=== PATIENT | male | born 1960 | race Caucasian/White ===

== ENCOUNTER → 2017-02-15 | Outpatient (CLI) | payer OTHER ==
--- NOTE | ~2017-02-15 | PUL ---
PATIENT'S NAME: WIL WAGONER [facility] AGE: 56 Y [address] ROOM: [place], [place] [address] LOCATION: [facility] ADMIT DATE: 02/15/2017 Pulmonary DISCHARGE DATE: FAMILY PHYSICIAN: gNuyễn Santiago MD ATTENDING PHYSICIAN: Nguyễn Santiago NAME OF PROCEDURE: Sleep Study PROCEDURE DATE: 02/15/2017 TECH: MARV Ortiz TEST #: [facility] [place]# [id number] TECHNICAL PARAMETERS: The patient was studied using [employer] 10/20 measuring system. While the patient was studied, there was continuous monitoring of EEG (8 leads), EOG (2 leads), EKG (3 leads), submental EMG (3 leads), tibial (4 leads), respiratory inductive plethysmography (RIP) for thoracic and abdominal effort, oral and nasal airflow with a thermocouple and pressure transducer, and oximetry. The power technician also performed visual and auditory observations noting things like body position, patient's status, breath sounds, artifact, snoring level and patient comments. Continuous sound was monitored using a 2-way speaker system and video monitoring was performed using an infrared camera. Review of the entire study was performed epoch by epoch utilizing a single epoch and multiple epoch capability sleep system. MEDICAL HISTORY: Patient is a 56-year-old overweight man with daytime sleepiness and snoring. SLEEP STAGE SUMMARY: The patient was studied for 459 minutes of which he slept 228 minutes. He fell asleep in 11 minutes and slept for 50% of the night. Sleep architecture revealed a decline in slow wave and REM sleep. RESPIRATORY SUMMARY: Oxygen saturations ranged from 88-94%. Prior to initiating CPAP there were 25 apneas and 19 hypopneas for an apnea/hypopnea index moderately elevated at 20 events per hour. CPAP was initiated and titrated to 14 cm. Patient had some difficulty sleeping with CPAP on and CPAP titration was incomplete. EKG SUMMARY: Average heart rate during sleep 60 beats per minute. No dysrhythmias were noted. LIMB MOVEMENT SUMMARY: No clinically relevant periodic limb movements were noted. PATIENT'S NAME: WIL WAGONER [facility] AGE: 56 Y [address] ROOM: [place], [place] [address] LOCATION: [facility] ADMIT DATE: 02/15/2017 Pulmonary DISCHARGE DATE: FAMILY PHYSICIAN: Nguyễn Santiago MD ATTENDING PHYSICIAN: Nguyễn Santiago SUMMARY: Moderate obstructive sleep apnea. PLAN: Would consider auto titrating CPAP or a repeat study for full CPAP titration. Patient will receive results from the ordering provider. MD GLORIA STEELE/ /[id number] dtt: 03/04/17 1301 , Fernando John. dtd: 02/17/17 1125
== END | disposition disaster alternative care site (69) ==
LOC: GSLP 20:31
DX: G47.19 Other hypersomnia (principal); G47.33 Obstructive sleep apnea (adult) (pediatric)